=== PATIENT | female | born 1960 | race African-American/Black ===

== ENCOUNTER 2016-12-29 19:55 | Inpatient (IN) | payer MEDICARE, MEDICAID ==
[~2016-12-29] VITALS: Ht 172.7 cm; Wt 156.1 kg
[~2016-12-29 19:55] MED LIST: ALBU2.5V13 NEB; CARI350T PO; CODE118S2 PO; DIAZ10TA PO; FLUT1DIS3 INH; FURO-151 PO; GABA300C PO; HYDR-519 PO; METF10002 PO; PROT20 PO; VALS320T9 PO
[2016-12-29] MEDS ORDERED: IPRATROPIUM BROMIDE (0.02%) 0.5MG/2.5ML NEB HHN STA (20:19)
[2016-12-29] MEDS ORDERED: METHYLPREDNISOLONE SOD SUCC 125 MG/2 ML VIAL IV STA (20:19)
[2016-12-29] MEDS ORDERED: ALBUTEROL (0.083%) 2.5MG/3ML NEB HHN STA (20:19)
[2016-12-29 20:41] LABS: BG BASE EXCESS 2.5 mmol/L (-2.0-2.0); BG CARBOXYHEMOGLOBIN 4.7 % (0.5-1.5); BG DEOXYHEMOGLOBIN 12.1 % (0.0-5.0); BG FRACTION INSPIRED OXYGEN 28; BG HCO3 ACT 30.3 mmol/L (22.0-26.0); BG METHEMOGLOBIN 0.3 % (0.0-1.5); BG OXYGEN SATURATION 87.3 % (92.0-98.5); BG OXYHEMOGLOBIN 82.9 % (94.0-97.0); BG PCO2 61.1 mmHg (35.0-45.0); BG PH 7.313 (7.350-7.450); BG PO2 52.6 mmHg (75.0-100.0); BG SAMPLE SITE RIGHT BRACHIAL; BG VENT MODE NASAL CANNULA
[2016-12-29] MEDS ORDERED: LEVOFLOXACIN 750MG PREMIX 150 ML IV ONE (21:00)
[2016-12-29] MEDS ORDERED: FUROSEMIDE 40MG/4ML VIAL IVP ONE (21:00)
[2016-12-29] MEDS ORDERED: MORPHINE SULFATE 4 MG/ML CPJ (NOT FOR IM USE) IV ONE (21:15)
[2016-12-29] MEDS ORDERED: ONDANSETRON HCL 4MG/2ML VIAL IV ONE (21:15)
[2016-12-29 21:23] LABS: BASOPHILS % 0.6 % (0.0-2.0); DIFFERENTIAL COMMENT 0; EOSINOPHILS % 0.1 % (0.0-5.0); HEMATOCRIT. 41.4 % (36.0-48.0); HEMOGLOBIN. 12.6 g/dL (12.0-16.0); LYMPHOCYTES % 10.2 % (20.0-50.0); MEAN CORPUSCULAR HGB CONC 30.4 g/dL (31.0-37.0); MEAN CORPUSCULAR VOLUME 82.2 fL (81.0-99.0); MEAN PLATELET VOLUME 9.1 fl (7.4-10.4); MONOCYTES % 3.3 % (2.0-8.0); NEUTROPHILS % 85.8 % (40.0-76.0); PLATELET 116 x1000/uL (130-400); RED BLOOD CELL COUNT 5.03 mill/uL (4.2-5.4); RED CELL DISTRIBUTION WIDTH 17.9 % (11.6-14.6); WHITE BLOOD COUNT 9.9 x1000/uL (4.5-11.0)
[2016-12-29 21:27] LABS: CHLORIDE 101 mEq/L (98-107); INDEX HEMOLYSI 1 (1-3); INDEX ICTERIC 1 (1-4); INDEX LIPEMIC 1 (1-3)
[2016-12-29 21:30] LABS: ALBUMIN 3.1 g/dL (3.4-5.0); ANION GAP 13; CALCIUM 7.9 mg/dL (8.5-10.1); CARBON DIOXIDE 31 mEq/L (21-32); UREA NITROGEN BLOOD 11 mg/dL (7-21)
[2016-12-29 21:32] LABS: D-DIMER 0.55 mg/L FEU (<0.50); PROTHROMBIN TIME 10.5 sec
[2016-12-29 21:37] LABS: ALANINE AMINOTRANSFERASE 22 IU/L (13-61); NT PRO B-TYPE NATRIURETIC PEP 1001 pg/mL (5-125); TROPONIN I 0.11 ng/mL (0.00-0.04); eGFR > 60 mL/min (>60)
[2016-12-29 22:16] LABS: CLARITY URINE CLEAR (CLEAR); COLOR URINE YELLOW (YELLOW); GLUCOSE URINE 3+ (NEGATIVE); KETONES URINE NEGATIVE (NEGATIVE); LEUKOCYTE ESTERASE URINE 1+ (NEGATIVE); NITRITE URINE NEGATIVE (NEGATIVE); OCCULT BLOOD URINE NEGATIVE (NEGATIVE); PROTEIN URINE TRACE (NEGATIVE); SPECIFIC GRAVITY URINE 1.021 (1.005-1.030)
[2016-12-29 22:35] LABS: BACTERIA URINE 1+; RBC URINE 0-2 /hpf (0-2); SQUAMOUS EPITHELIAL CELL URINE 1+ /lpf (RARE/1+)
[2016-12-30] MEDS ORDERED: ONDANSETRON HCL 4MG/2ML VIAL IV ONE (00:15)
[2016-12-30] MEDS ORDERED: DIPHENHYDRAMINE 50MG CAPSULE PO ONE (00:15)
[2016-12-30 02:30] VITALS: BP 166/113
[2016-12-30 04:00] VITALS: BP 139/94
[2016-12-30] MEDS ORDERED: METHYLPREDNISOLONE SOD SUCC 40 MG/ML VIAL IV SCH (04:15)
[2016-12-30] MEDS ORDERED: IPRATROPIUM/ALBUTEROL 0.5-3(2.5)MG/3ML NEB HHN PRN ×2 (04:15→12:15)
[2016-12-30] MEDS ORDERED: MEDICATION NOT ON FORMULARY EA (Fluticasone/Salmeterol (Advair 250-50 Diskus) 1 PUFF) INH PRN (06:30)
[2016-12-30] MEDS ORDERED: PROMETHAZINE HCL PO SCH (06:30)
[2016-12-30] MEDS ORDERED: CODEINE PO SCH (06:30)
[2016-12-30] MEDS ORDERED: CARISOPRODOL 350 MG TABLET PO PRN (06:30)
[2016-12-30] MEDS ORDERED: [UNRECOGNIZED DRUG - OTHER] PO SCH (06:30)
[2016-12-30] MEDS ORDERED: DEXTROSE 50% WATER 50ML SYRINGE IV PRN (06:30)
[2016-12-30] MEDS: BLOOD SUGAR DIAGNOSTIC STRIP TEST SCH ×4 (06:50→21:33)
[2016-12-30] MEDS: METHYLPREDNISOLONE SOD SUCC 40 MG/ML VIAL IV SCH ×3 (06:50→21:35)
[2016-12-30] MEDS ORDERED: VALSARTAN 320 MG PO SCH (09:00)
[2016-12-30] MEDS ORDERED: PANTOPRAZOLE SODIUM 20 MG PO SCH (09:00)
[2016-12-30 09:11] LABS: ANION GAP 11; CALCIUM 8.4 mg/dL (8.5-10.1); CARBON DIOXIDE 37 mEq/L (21-32); CHLORIDE 97 mEq/L (98-107); CREATINE KINASE 72 IU/L (26-192); CREATINE KINASE MB FRACTION 1.2 ng/mL (0.5-3.6); INDEX HEMOLYSI 1 (1-3); INDEX ICTERIC 1 (1-4); INDEX LIPEMIC 1 (1-3); TROPONIN I 0.08 ng/mL (0.00-0.04); UREA NITROGEN BLOOD 9 mg/dL (7-21); eGFR > 60 mL/min (>60)
[2016-12-30 09:13] LABS: HEMATOCRIT 44.4 % (36.0-48.0); HEMOGLOBIN 13.2 g/dL (12.0-16.0); MEAN CORPUSCULAR HEMOGLOBIN 24.8 pg (28.0-32.0); MEAN CORPUSCULAR HGB CONC 29.8 g/dL (31.0-37.0); MEAN CORPUSCULAR VOLUME 83.3 fL (81.0-99.0); PLATELET 119 x1000/uL (130-400); RED BLOOD CELL COUNT 5.33 mill/uL (4.2-5.4); RED CELL DISTRIBUTION WIDTH 17.6 % (11.6-14.6); WHITE BLOOD COUNT 10.7 x1000/uL (4.5-11.0)
[2016-12-30] MEDS: FUROSEMIDE 40MG TABLET PO SCH (09:35)
[2016-12-30] MEDS: GABAPENTIN 300MG CAPSULE PO SCH (09:35)
[2016-12-30] MEDS: ENOXAPARIN 40MG/0.4ML SYR SUBCUT SCH ×2 (09:36→21:34)
[2016-12-30] MEDS: HYDROCODONE/ACETAMINOPHEN 10/325MG TABLET PO SCH ×2 (09:36→17:11)
[2016-12-30] MEDS: INSULIN LISPRO 100 UNITS/ML SUBCUT SCH ×4 (09:37→21:33)
[2016-12-30 09:47] VITALS: BP 141/94
[2016-12-30] MEDS: LOSARTAN POTASSIUM 100 MG TABLET PO SCH (10:05)
[2016-12-30 12:00] VITALS: BP 159/101
[2016-12-30] MEDS: FAMOTIDINE 20MG TABLET PO SCH ×2 (13:13→21:35)
[2016-12-30] MEDS: GUAIFENESIN/CODEINE 200-20MG/10ML UDC PO PRN (13:13)
[2016-12-30] MEDS: METFORMIN HCL 500MG TABLET PO SCH (13:14)
[2016-12-30] MEDS: AMLODIPINE 5MG TABLET PO SCH ×2 (13:14→21:35)
[2016-12-30 15:25] LABS: *AMPHETAMINES SCREEN URINE NEGATIVE (NEGATIVE); *BARBITURATES SCREEN URINE NEGATIVE (NEGATIVE); *BENZODIAZEPINES SCREEN URINE PRESUMTIVE POSITIVE (NEGATIVE); *COCAINE SCREEN URINE NEGATIVE (NEGATIVE); CANNABINOID URINE SCREEN NEGATIVE (NEGATIVE); ECSTASY MDMA SCREEN URINE NEGATIVE (NEGATIVE); METHADONE URINE SCREEN NEGATIVE (NEGATIVE); OPIATES URINE SCREEN PRESUMTIVE POSITIVE (NEGATIVE); PHENCYCLIDINE URINE SCREEN NEGATIVE (NEGATIVE)
[2016-12-30 16:00] VITALS: BP 144/102
[2016-12-30 16:09] LABS: CREATINE KINASE MB FRACTION 1.2 ng/mL (0.5-3.6); TROPONIN I 0.07 ng/mL (0.00-0.04)
[2016-12-30] MEDS: BUDESONIDE 0.5MG/2ML NEB HHN SCH (16:46)
[2016-12-30] MEDS: IPRATROPIUM/ALBUTEROL 0.5-3(2.5)MG/3ML NEB HHN SCH ×2 (16:46→21:11)
[2016-12-30] MEDS ORDERED: SODIUM POLYSTYRENE SULFONATE 15 G/60 ML BOT PO NR (17:30)
[2016-12-30 20:00] VITALS: BP 126/84
[2016-12-30] MEDS ORDERED: DIAZEPAM 5 MG TABLET PO PRN (21:00)
[2016-12-31] VITALS (7 sets, daily range): BP systolic 112–128; BP diastolic 78–86
[2016-12-31] MEDS: IPRATROPIUM/ALBUTEROL 0.5-3(2.5)MG/3ML NEB HHN SCH ×7 (01:09→23:44)
[2016-12-31] MEDS: BUDESONIDE 0.5MG/2ML NEB HHN SCH ×2 (04:45→16:21)
[2016-12-31] MEDS: METHYLPREDNISOLONE SOD SUCC 40 MG/ML VIAL IV SCH ×3 (06:01→21:27)
[2016-12-31] MEDS: BLOOD SUGAR DIAGNOSTIC STRIP TEST SCH ×4 (06:04→21:27)
[2016-12-31 07:10] LABS: BASOPHILS % 0.1 % (0.0-2.0); DIFFERENTIAL COMMENT 0; HEMATOCRIT. 41.5 % (36.0-48.0); HEMOGLOBIN. 12.7 g/dL (12.0-16.0); LYMPHOCYTES % 7.2 % (20.0-50.0); MEAN CORPUSCULAR HEMOGLOBIN 25.3 pg (28.0-32.0); MEAN CORPUSCULAR HGB CONC 30.5 g/dL (31.0-37.0); MEAN CORPUSCULAR VOLUME 82.7 fL (81.0-99.0); MEAN PLATELET VOLUME 8.9 fl (7.4-10.4); MONOCYTES % 7.6 % (2.0-8.0); NEUTROPHILS % 85.1 % (40.0-76.0); PLATELET 123 x1000/uL (130-400); RED BLOOD CELL COUNT 5.02 mill/uL (4.2-5.4); RED CELL DISTRIBUTION WIDTH 18.5 % (11.6-14.6); WHITE BLOOD COUNT 10.3 x1000/uL (4.5-11.0)
[2016-12-31 07:36] LABS: ANION GAP 11; CARBON DIOXIDE 39 mEq/L (21-32); CHLORIDE 92 mEq/L (98-107); UREA NITROGEN BLOOD 19 mg/dL (7-21)
[2016-12-31 07:37] LABS: ALANINE AMINOTRANSFERASE 20 IU/L (13-61); ALBUMIN 3.2 g/dL (3.4-5.0); CALCIUM 8.4 mg/dL (8.5-10.1); INDEX HEMOLYSI 1 (1-3); INDEX ICTERIC 1 (1-4); INDEX LIPEMIC 1 (1-3); eGFR > 60 mL/min (>60)
[2016-12-31 08:19] LABS: BG BASE EXCESS 9.7 mmol/L (-2.0-2.0); BG CARBOXYHEMOGLOBIN 2.8 % (0.5-1.5); BG DEOXYHEMOGLOBIN 11.6 % (0.0-5.0); BG HCO3 ACT 41.4 mmol/L (22.0-26.0); BG METHEMOGLOBIN 0.1 % (0.0-1.5); BG OXYGEN SATURATION 88.1 % (92.0-98.5); BG OXYHEMOGLOBIN 85.5 % (94.0-97.0); BG PH 7.231 (7.350-7.450); BG PO2 58.5 mmHg (75.0-100.0); BG SAMPLE SITE RIGHT RADIAL; BG TOTAL HEMOGLOBIN 13.7 g/dL (12.0-18.0); BG VENT MODE NASAL CANNULA
[2016-12-31] MEDS: ENOXAPARIN 40MG/0.4ML SYR SUBCUT SCH ×2 (09:00→21:26)
[2016-12-31] MEDS: GABAPENTIN 300MG CAPSULE PO SCH (09:37)
[2016-12-31] MEDS: FUROSEMIDE 40MG TABLET PO SCH (09:37)
[2016-12-31] MEDS: AMLODIPINE 5MG TABLET PO SCH (09:38)
[2016-12-31] MEDS: LOSARTAN POTASSIUM 100 MG TABLET PO SCH (09:38)
[2016-12-31] MEDS: METFORMIN HCL 500MG TABLET PO SCH ×2 (09:38→16:57)
[2016-12-31] MEDS: FAMOTIDINE 20MG TABLET PO SCH ×2 (09:38→21:27)
[2016-12-31] MEDS: HYDROCODONE/ACETAMINOPHEN 10/325MG TABLET PO SCH ×3 (09:39→22:14)
[2016-12-31] MEDS: INSULIN LISPRO 100 UNITS/ML SUBCUT SCH ×4 (09:41→21:28)
[2016-12-31] MEDS: GUAIFENESIN/CODEINE 200-20MG/10ML UDC PO PRN ×2 (09:50→21:26)
[2016-12-31] MEDS ORDERED: LORAZEPAM 0.5MG TABLET PO PRN (13:15)
[2016-12-31] MEDS ORDERED: LIDOCAINE HCL/PF 1% 2ML VIAL ONE (13:49)
[2016-12-31] MEDS ORDERED: AMLODIPINE 5MG TABLET PO NR (14:00)
[2016-12-31] MEDS: SILDENAFIL CITRATE 20MG TABLET PO SCH ×2 (14:18→21:27)
[2016-12-31] MEDS: INSULIN DETEMIR UD 100 UNITS/ML SYR SUBCUT SCH ×2 (14:20→22:12)
[2016-12-31 14:38] LABS: BG BASE EXCESS 8.5 mmol/L (-2.0-2.0); BG CARBOXYHEMOGLOBIN 2.4 % (0.5-1.5); BG DEOXYHEMOGLOBIN 12.1 % (0.0-5.0); BG FRACTION INSPIRED OXYGEN 28; BG METHEMOGLOBIN 0.1 % (0.0-1.5); BG OXYGEN SATURATION 87.6 % (92.0-98.5); BG OXYHEMOGLOBIN 85.4 % (94.0-97.0); BG PH 7.269 (7.350-7.450); BG PO2 55.6 mmHg (75.0-100.0); BG SAMPLE SITE RIGHT RADIAL; BG TOTAL HEMOGLOBIN 13.8 g/dL (12.0-18.0); BG VENT MODE NASAL CANNULA
[2016-12-31] MEDS ORDERED: METFORMIN HCL 500MG TABLET PO SCH (17:50)
[2016-12-31] MEDS ORDERED: ONDANSETRON HCL 4MG/2ML VIAL IV PRN (19:30)
[2016-12-31] MEDS: MUPIROCIN 2% OINT 22GM TOP SCH (21:27)
[2017-01-01 04:28] VITALS: BP 136/94
[2017-01-01] MEDS: BUDESONIDE 0.5MG/2ML NEB HHN SCH ×3 (04:36→19:59)
[2017-01-01] MEDS: IPRATROPIUM/ALBUTEROL 0.5-3(2.5)MG/3ML NEB HHN SCH ×5 (04:36→19:59)
[2017-01-01] MEDS: SILDENAFIL CITRATE 20MG TABLET PO SCH ×3 (05:18→22:00)
[2017-01-01] MEDS: MUPIROCIN 2% OINT 22GM TOP SCH ×3 (05:18→22:00)
[2017-01-01] MEDS: METHYLPREDNISOLONE SOD SUCC 40 MG/ML VIAL IV SCH ×3 (05:18→23:29)
[2017-01-01 06:26] LABS: ANION GAP 12; CALCIUM 8.4 mg/dL (8.5-10.1); CARBON DIOXIDE 36 mEq/L (21-32); CHLORIDE 92 mEq/L (98-107); INDEX ICTERIC 1 (1-4); INDEX LIPEMIC 1 (1-3); UREA NITROGEN BLOOD 24 mg/dL (7-21); eGFR > 60 mL/min (>60)
[2017-01-01] MEDS: BLOOD SUGAR DIAGNOSTIC STRIP TEST SCH ×4 (06:42→21:00)
[2017-01-01 06:55] LABS: INDEX HEMOLYSI 4 (1-3)
[2017-01-01 08:00] VITALS: BP 105/69
[2017-01-01] MEDS: AMLODIPINE 5MG TABLET PO SCH (09:00)
[2017-01-01 09:29] LABS: HEMATOCRIT. 41.4 % (36.0-48.0); HEMOGLOBIN. 12.6 g/dL (12.0-16.0); MEAN CORPUSCULAR HEMOGLOBIN 25.1 pg (28.0-32.0); MEAN CORPUSCULAR HGB CONC 30.5 g/dL (31.0-37.0); MEAN CORPUSCULAR VOLUME 82.1 fL (81.0-99.0); MEAN PLATELET VOLUME 9.6 fl (7.4-10.4); PLATELET 125 x1000/uL (130-400); RED BLOOD CELL COUNT 5.04 mill/uL (4.2-5.4)
[2017-01-01 09:35] LABS: DIFFERENTIAL COMMENT 1
[2017-01-01] MEDS: INSULIN LISPRO 100 UNITS/ML SUBCUT SCH ×4 (09:58→21:00)
[2017-01-01] MEDS: LOSARTAN POTASSIUM 100 MG TABLET PO SCH (09:59)
[2017-01-01] MEDS: FAMOTIDINE 20MG TABLET PO SCH ×2 (09:59→21:00)
[2017-01-01] MEDS: FUROSEMIDE 40MG TABLET PO SCH (10:01)
[2017-01-01] MEDS: GABAPENTIN 300MG CAPSULE PO SCH (10:01)
[2017-01-01 10:16] LABS: NUCLEATED RED BLOOD CELLS 1 /100 WBC
[2017-01-01 10:17] LABS: ANISOCYTOSIS 2+; PLATELET ESTIMATE SLIGHTLY DECREASED
[2017-01-01] MEDS: ENOXAPARIN 40MG/0.4ML SYR SUBCUT SCH ×2 (11:07→21:00)
[2017-01-01] MEDS: METFORMIN HCL 500MG TABLET PO SCH ×2 (11:17→18:00)
[2017-01-01] MEDS: HYDROCODONE/ACETAMINOPHEN 10/325MG TABLET PO SCH ×2 (11:34→23:41)
[2017-01-01] MEDS: INSULIN DETEMIR UD 100 UNITS/ML SYR SUBCUT SCH ×2 (11:35→22:00)
[2017-01-01 15:06] LABS: BG BASE EXCESS 10.3 mmol/L (-2.0-2.0); BG CARBOXYHEMOGLOBIN 1.2 % (0.5-1.5); BG DEOXYHEMOGLOBIN 9.9 % (0.0-5.0); BG FRACTION INSPIRED OXYGEN 28; BG METHEMOGLOBIN 0.2 % (0.0-1.5); BG OXYHEMOGLOBIN 88.7 % (94.0-97.0); BG PCO2 100.8 mmHg (35.0-45.0); BG PH 7.238 (7.350-7.450); BG PO2 63.5 mmHg (75.0-100.0); BG SAMPLE SITE RIGHT RADIAL; BG TOTAL HEMOGLOBIN 13.8 g/dL (12.0-18.0); BG VENT MODE NASAL CANNULA
[2017-01-01 18:00] VITALS: BP 135/76
[2017-01-01] MEDS: FUROSEMIDE 40MG/4ML VIAL IVP SCH (19:05)
[2017-01-01 20:00] VITALS: BP 135/60
[2017-01-01] MEDS ORDERED: INSULIN DETEMIR UD 100 UNITS/ML SYR SUBCUT SCH (22:00)
[2017-01-01] MEDS ORDERED: LORAZEPAM 2MG/ML CPJ IV PRN ×2 (22:28→22:30)
[2017-01-01 22:56] LABS: BG BASE EXCESS 11.8 mmol/L (-2.0-2.0); BG CARBOXYHEMOGLOBIN 1.4 % (0.5-1.5); BG DEOXYHEMOGLOBIN 32.1 % (0.0-5.0); BG FRACTION INSPIRED OXYGEN 21; BG HCO3 ACT 41.9 mmol/L (22.0-26.0); BG METHEMOGLOBIN 0.2 % (0.0-1.5); BG OXYGEN SATURATION 67.4 % (92.0-98.5); BG OXYHEMOGLOBIN 66.3 % (94.0-97.0); BG PH 7.316 (7.350-7.450); BG PO2 36.1 mmHg (75.0-100.0); BG SAMPLE SITE RIGHT RADIAL; BG TOTAL HEMOGLOBIN 14.3 g/dL (12.0-18.0); BG VENT MODE ROOM AIR
[2017-01-01 23:00] VITALS: BP 134/84
[2017-01-01] MEDS: GUAIFENESIN/CODEINE 200-20MG/10ML UDC PO PRN (23:45)
[2017-01-02] VITALS (15 sets, daily range): BP systolic 111–158; BP diastolic 71–89
[2017-01-02] MEDS: IPRATROPIUM/ALBUTEROL 0.5-3(2.5)MG/3ML NEB HHN SCH ×7 (00:03→23:55)
[2017-01-02] MEDS: METHYLPREDNISOLONE SOD SUCC 40 MG/ML VIAL IV SCH ×2 (06:56→18:18)
[2017-01-02] MEDS: FUROSEMIDE 40MG/4ML VIAL IVP SCH ×2 (06:56→18:18)
[2017-01-02] MEDS: SILDENAFIL CITRATE 20MG TABLET PO SCH ×3 (06:58→21:18)
[2017-01-02] MEDS: BLOOD SUGAR DIAGNOSTIC STRIP TEST SCH ×4 (07:30→21:13)
[2017-01-02] MEDS: BUDESONIDE 0.5MG/2ML NEB HHN SCH ×2 (09:27→19:53)
[2017-01-02] MEDS: METFORMIN HCL 500MG TABLET PO SCH ×2 (10:26→18:18)
[2017-01-02] MEDS: LOSARTAN POTASSIUM 100 MG TABLET PO SCH (10:26)
[2017-01-02] MEDS: GABAPENTIN 300MG CAPSULE PO SCH (10:26)
[2017-01-02] MEDS: FAMOTIDINE 20MG TABLET PO SCH ×2 (10:26→21:18)
[2017-01-02] MEDS: AMLODIPINE 5MG TABLET PO SCH (10:27)
[2017-01-02] MEDS: MUPIROCIN 2% OINT 22GM TOP SCH ×3 (10:27→21:18)
[2017-01-02] MEDS: INSULIN LISPRO 100 UNITS/ML SUBCUT SCH ×4 (10:28→21:00)
[2017-01-02] MEDS: INSULIN DETEMIR UD 100 UNITS/ML SYR SUBCUT SCH ×2 (10:30→21:21)
[2017-01-02] MEDS: ENOXAPARIN 40MG/0.4ML SYR SUBCUT SCH ×2 (10:31→21:18)
[2017-01-02] MEDS: HYDROCODONE/ACETAMINOPHEN 10/325MG TABLET PO SCH (19:46)
[2017-01-03] VITALS (14 sets, daily range): BP systolic 90–160; BP diastolic 53–94
[2017-01-03] MEDS: IPRATROPIUM/ALBUTEROL 0.5-3(2.5)MG/3ML NEB HHN SCH ×3 (04:17→20:18)
[2017-01-03] MEDS: METHYLPREDNISOLONE SOD SUCC 40 MG/ML VIAL IV SCH (06:04)
[2017-01-03] MEDS: MUPIROCIN 2% OINT 22GM TOP SCH ×3 (06:04→22:11)
[2017-01-03] MEDS: SILDENAFIL CITRATE 20MG TABLET PO SCH ×3 (06:07→22:10)
[2017-01-03] MEDS: FUROSEMIDE 40MG/4ML VIAL IVP SCH ×2 (06:33→18:24)
[2017-01-03] MEDS: BLOOD SUGAR DIAGNOSTIC STRIP TEST SCH ×4 (07:30→20:34)
[2017-01-03] MEDS: FAMOTIDINE 20MG TABLET PO SCH ×2 (09:38→20:26)
[2017-01-03] MEDS: AMLODIPINE 5MG TABLET PO SCH (09:38)
[2017-01-03] MEDS: LOSARTAN POTASSIUM 100 MG TABLET PO SCH (09:38)
[2017-01-03] MEDS: METFORMIN HCL 500MG TABLET PO SCH ×2 (09:38→18:24)
[2017-01-03] MEDS: GABAPENTIN 300MG CAPSULE PO SCH (09:38)
[2017-01-03] MEDS: ENOXAPARIN 40MG/0.4ML SYR SUBCUT SCH ×2 (09:39→20:26)
[2017-01-03] MEDS: INSULIN LISPRO 100 UNITS/ML SUBCUT SCH ×4 (09:40→20:36)
[2017-01-03] MEDS: INSULIN DETEMIR UD 100 UNITS/ML SYR SUBCUT SCH ×2 (09:40→22:13)
[2017-01-03] MEDS: BUDESONIDE 0.5MG/2ML NEB HHN SCH ×2 (11:30→20:19)
[2017-01-03] MEDS: HYDROCODONE/ACETAMINOPHEN 10/325MG TABLET PO SCH ×2 (15:34→22:11)
[2017-01-03] MEDS: GUAIFENESIN/CODEINE 200-20MG/10ML UDC PO PRN (20:31)
[2017-01-04] VITALS: BP 145/69
[2017-01-04] MEDS: IPRATROPIUM/ALBUTEROL 0.5-3(2.5)MG/3ML NEB HHN SCH ×2 (00:18→03:49)
[2017-01-04 02:08] VITALS: BP 125/57
[2017-01-04 04:00] VITALS: BP 126/68
[2017-01-04] MEDS: SILDENAFIL CITRATE 20MG TABLET PO SCH (05:30)
[2017-01-04] MEDS: MUPIROCIN 2% OINT 22GM TOP SCH (05:30)
[2017-01-04 05:59] VITALS: BP 123/64
[2017-01-04] MEDS ORDERED: PREDNISONE 20MG TABLET PO SCH (09:00)
== END 2017-01-04 07:45 | disposition home health service (06) | DRG 291 ==
LOC: ER 19:55 → 6WST 23:24 → 5EST 01-01 16:26
PROVIDERS: ADMIT Internal Medicine; ATTEND Internal Medicine
PROC: 5A09457 Assistance with Respiratory Ventilation, 24-96 Consecutive Hours, Continuous Positive Airway Pressure (ICD-10-PCS; principal; 2016-12-31)
DX: I11.0 Hypertensive heart disease with heart failure (principal); J96.22 Acute and chronic respiratory failure with hypercapnia; J44.1 Chronic obstructive pulmonary disease with (acute) exacerbation; N39.0 Urinary tract infection, site not specified; E66.2 Morbid (severe) obesity with alveolar hypoventilation; Z68.43 Body mass index [BMI] 50.0-59.9, adult; I50.33 Acute on chronic diastolic (congestive) heart failure; E11.65 Type 2 diabetes mellitus with hyperglycemia; I27.2 Other secondary pulmonary hypertension; G47.30 Sleep apnea, unspecified; I27.81 Cor pulmonale (chronic); J45.909 Unspecified asthma, uncomplicated; Z86.711 Personal history of pulmonary embolism; Z87.891 Personal history of nicotine dependence; Z99.81 Dependence on supplemental oxygen; Z86.718 Personal history of other venous thrombosis and embolism
CPT/HCPCS: 36415; 36600; 71010; 80048; 80053; 80305; 81001; 82375; 82550; 82553; 82805; 82962; 83880; 84132; 84484; 85025; 85027; 85379; 85610; 87040; 87086; 93005; 93970; 94640; 94660; 94664; 96365; 96375; 96376; 99285; J1650; J1815; J1940; J1956; J2060; J2270; J2405; J2920; J2930; J3490; J7620; J7626